=== PATIENT | male | born 1980 | race Two or more races ===

== ENCOUNTER 2023-04-15 20:58 | Emergency (ER) | payer OTHER ==
[~2023-04-15] VITALS: Ht 172.7 cm; Wt 77.1 kg
[2023-04-15 21:03] VITALS: BP 138/87
[2023-04-15] MEDS ORDERED: TRIUMEQ 600-501 EACH PO (21:48)
[2023-04-15] MEDS ORDERED: Keflex500 MG PO (21:50)
== END 2023-04-15 23:05 | disposition home or self-care (01) ==
LOC: ER 20:58
DX: L03.115 Cellulitis of right lower limb (principal)
CPT/HCPCS: 10060; 99283-25; A9270